=== PATIENT | male | born 1985 | race African-American/Black ===

== ENCOUNTER 2018-07-05 06:26 | Emergency (ER) | payer MEDICAID ==
[~2018-07-05] VITALS: Ht 177.8 cm; Wt 70.3 kg
--- NOTE | 2018-07-05 06:35 | NUR ---
PT BIB SELF C/O LOWER BACK PAIN. PT STATES HE WAS DRINKING A LOT OF ALCOHOL THIS WEEKEND, LOWER BACK PAIN BL RADIATES TO SUPRAPUBIC, PAIN 8/10 SHARP AND CONSTANT. PT STATES +DARK URINE. DENIES N/V/D. LBM: 07/04/18. +SUPRAPUBIC TENDERNESS. PT ACTING APPROPRIATLY. PT IN GOWN, IN BED; BED IN LOWER LOCKED POSITION, BED RAILS UP X2. PMH: DENIES RX: DENIES
--- NOTE | 2018-07-05 06:36 | NUR ---
PT TAKEN TO BED 3
[2018-07-05 06:41] VITALS: BP 131/74
[2018-07-05 07:12] LABS: APPEARANCE,URINE CLEAR (CLEAR); BILIRUBIN,URINE NEGATIVE (NEGATIVE); BLOOD, URINE NEGATIVE (NEGATIVE); COLOR,URINE YELLOW (YELLOW); LEUKOCYTE ESTERASE ,URINE NEGATIVE (NEGATIVE); NITRITE, URINE NEGATIVE (NEGATIVE); UGLUCOSE NEGATIVE (NEGATIVE)
--- NOTE | 2018-07-05 07:17 | NUR ---
Bedside report given to DARIEN Garcia. Patient acting appropriatly. Transfer of care at this time.
--- NOTE | 2018-07-05 07:18 | NUR ---
PT IS AAO X4, FULL CLEAR SPEECH, ACTING APPROPRIATELY, CONVERSATING APPROPRIATELY. C/O 8/10 PAIN TO JEREMIAS LOWER BACK AT THIS TIME. PT WAS GIVEN PILLOW AND EXTRA BLANKETS AT THIS TIME. WILL CONTINUE TO MONITOR.
[2018-07-05 07:22] LABS: RBC,URINE NONE SEEN /HPF (0-5); WBC,URINE NONE SEEN /HPF (0-5)
--- NOTE | 2018-07-05 07:23 | NUR ---
Dr. Hargrove evaluating patient at bedside.
[2018-07-05 07:36] VITALS: BP 129/74
== END 2018-07-05 07:36 | disposition home or self-care (01) ==
LOC: MED 06:26
DX: M54.5 Low back pain (principal); F17.200 Nicotine dependence, unspecified, uncomplicated
CPT/HCPCS: 81001; 99283